=== PATIENT | male | born 1935 | race African-American/Black ===

== ENCOUNTER 2018-06-03 20:15 | Emergency (ER) | payer OTHER ==
[~2018-06-03] VITALS: Ht 177.8 cm; Wt 77.1 kg
[~2018-06-03 20:15] MED LIST: BENICAR20 MG PO; MEDROLDOSEPACK PO; METFORMIN HCL500 MG PO; NORCO 5-325 TA1 EACH PO; SILVADENE20 GM TP; VENTOLIN HFA 1818 GM INH
[2018-06-03 20:34] LABS: HEMOGLOBIN 8.5 gm/dL (14.0-18.0); RBC 4.39 mil/uL (4.50-6.00); WBC 2.6 thou/uL (4.0-11.0)
[2018-06-03 20:36] LABS: MCH 19.4 pg (26.0-34.0); MCHC 31.5 g/dL (28.0-37.0); MCV 61.5 fL (80.0-100.0); PLATELET COUNT 245 thou/uL (150-400); RDW 17.2 % (10.5-14.5)
[2018-06-03 20:40] LABS: ANION GAP 9 mmol/L (7-16); BUN 25 mg/dL (7-18); CALCIUM 8.1 mg/dL (8.5-10.1); CHLORIDE 105 mmol/L (98-107); CO2 26 mmol/L (21-32); CREATININE 1.9 mg/dL (0.7-1.3); GLUCOSE 105 mg/dL (74-106); POTASSIUM 3.8 mmol/L (3.5-5.1); SODIUM 140 mmol/L (136-145)
[2018-06-03 20:50] LABS: TROPONIN-I <0.06 ng/mL (<0.06)
[2018-06-03 21:00] LABS: ABSOLUTE NEUTROPHILS 1.3 thou/uL (1.4-8.2)
[2018-06-03 21:03] LABS: ANISOCYTOSIS 1+; HYPOCHROMASIA 3+; LARGE PLATELETS RARE; MICROCYTES 3+; OVALOCYTES FEW; PLATELET ESTIMATE NORMAL; POLYCHROMASIA 1+; SCHISTOCYTES FEW; TARGET CELLS OCCASIONAL; TEARDROPS FEW
[2018-06-04 00:21] VITALS: BP 190/93
--- NOTE | 2018-06-04 08:00 | EKG ---
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 : 1935 Requested By: Bhavik Roa Order Number: [id number] MD: Nithin Andujar Measurements Intervals [place] Rate: 78 P: 52 PA: 180 QRS: -13 QRSD: 81 T: -10 QT: 384 QTc: 438 Interpretive Statements Sinus rhythm T-wave abnormality, consider inferior and lateral ischemia Compared to ECG 08/30/2013 20:35:33 T-wave abnormality now present Electronically Signed On 06-04-2018 8:00:42 CDT by Nithin Andujar [email or web address] ��������������������������������������������� <ELECTRONICALLY SIGNED> ���������������������������������������� By: Nithin Andujar MD, [facility] ��������������������������������������������� 06/04/18 0800 28 28 Nithin Andujar MD, FAC /EPI
== END 2018-06-04 00:22 | disposition home or self-care (01) ==
LOC: ER 20:15
PROVIDERS: Emergency Medicine
DX: R41.0 Disorientation, unspecified (principal); I10 Essential (primary) hypertension; E11.9 Type 2 diabetes mellitus without complications; Z87.891 Personal history of nicotine dependence; Z91.040 Latex allergy status; Z88.0 Allergy status to penicillin